=== PATIENT | female | born 1970 | race Caucasian/White ===

== ENCOUNTER 2019-11-15 | Emergency (ER) | payer OTHER ==
[~2019-11-15] MED LIST: CELEBREX200 MG PO; FENOGLIDE PO; FISH OIL1200 M1 OR; IMITREX100 MG PO; MAGNESIUM400 MG OR; MULTI FOR HER PO; PHENERGAN12.5 MG/TA PO; SINGULAIR PO; TOPAMAX50 MG PO; VITAMIN D2000 UNI1 OR; VITAMIN D50000 UN1 OR; [UNRECOGNIZED DRUG - OTHER]
[2019-11-15] MEDS ORDERED: HYDROCHLOROTH12.5 M1 PO (18:15)
[2019-11-15] MEDS ORDERED: LOSARTAN POTASS50 MG PO (18:16)
[2019-11-15] MEDS ORDERED: MEDDOSEPAK PO (20:56)
--- NOTE | 2019-11-18 14:34 | NUR ---
COVID results called to patient with confirmation of name and . Encourage stay safe - stay home recommendations, frequent handwashing/sanitizing.
== END 2019-11-15 20:55 | disposition home or self-care (01) | DRG 203 ==
DX: J45.909 Unspecified asthma, uncomplicated (principal); I10 Essential (primary) hypertension; Z20.828 Contact with and (suspected) exposure to other viral communicable diseases

== ENCOUNTER 2020-08-10 14:51 | Emergency (ER) | payer OTHER ==
[~2020-08-10] VITALS: Ht 173.2 cm; Wt 134.5 kg
[~2020-08-10 14:51] MED LIST changes: +HYDROCHLOROTH12.5 M1 PO; +LOSARTAN POTASS50 MG PO; +MEDDOSEPAK PO
[2020-08-10] MEDS ORDERED: FLOVENT HF220 MCG/AC IN (15:50)
[2020-08-10] MEDS ORDERED: PROAIR HFA108 MCG/AC IN (15:50)
[2020-08-10] MEDS ORDERED: IMITREX6 MG/0.5 M SC (16:41)
[2020-08-10 17:06] VITALS: BP 144/65
== END 2020-08-10 17:06 | disposition home or self-care (01) | DRG 103 ==
LOC: ED 14:51
DX: G43.909 Migraine, unspecified, not intractable, without status migrainosus (principal); I10 Essential (primary) hypertension; J45.909 Unspecified asthma, uncomplicated